=== PATIENT | male | born 1995 | race Caucasian/White ===

== ENCOUNTER 2016-07-24 13:01 | Day surgery (SDC) | payer OTHER ==
[~2016-07-24] VITALS: Ht 188 cm; Wt 79.6 kg
[2016-07-24] VITALS (7 sets, daily range): BP systolic 100–140; BP diastolic 42–84; PULSE 81–101; RESP 12–16; O2SAT 99–100
[2016-07-24] MEDS ORDERED: Dexamethasone 4 mg/mL Inj ONE (13:02)
[2016-07-24] MEDS ORDERED: Ondansetron 2 mg/mL 2 mL Inj ONE (13:02)
[2016-07-24] MEDS ORDERED: Propofol 10,000 mCg/mL 20 mL Inj ONE (13:02)
[2016-07-24] MEDS ORDERED: fentaNYL-PF 50 mCg/mL 2 mL Inj ONE (13:02)
[2016-07-24] MEDS ORDERED: Lactated Ringer's 1,000 ML IV ONE ×2 (13:12→13:37)
[2016-07-24] MEDS ORDERED: CeFAZolin Inj 2 gm / 50mL D5W IV ONE (13:30)
[2016-07-24] MEDS ORDERED: Lactated Ringer's 500 ML IV PRN (13:37)
[2016-07-24] MEDS ORDERED: Lactated Ringer's 1,000 ML IV SCH (13:37)
--- NOTE | 2016-07-24 13:37 | PCM.HPANE ---
Patient Data Date of Service: Jul 24, 2016 Surgeon Admitting Provider: Attending Provider:Jose Golden MD Primary Care Physician:Daniela Dao MD Other Provider:Landon Zapien Anesthesia Reason for Visit Testiculor Torsion Ht/WT & BMI Height (Feet): 6 Height (Inches): 2.00 Weight (Kilograms): 79.600 Body Mass Index 22.00 Allergies Coded Allergies: No Known Allergies (Unverified , 07/24/16) Past Anesthesia History Anesthesia History: Denies:: Abnormal Airway, Anesthesia Reactions, Difficult Intubation, Fam Anesthesia Reaction, Fam Malignant Hypertherm, Malignant Hyperthermia Diabetes History Hx Diabetes?: No MRSA MRSA: No Medications Home Meds Incl Beta Andra: No History History of ENT Problems?: No HEENT History: Denies:: Abnormal Airway Cataracts Difficult Intubation Dysphagia Glaucoma Hearing Problem Sinus Problem TMJ Denture Type: None Teeth Condition: Within Normal Limits Hx of Heart Problems?: No Cardiovascular History: Denies:: AICD Abdominal Aortic Aneurism Atrial Fibrillation Cardiac Surgery Chest Pain Congestive Heart Failure Coronary Artery Disease Edema Heart Murmur Hypertension Irregular Heartbeat Pacemaker Peripheral Vascular Rheumatic Fever Thrombophlebitis Valvular Heart Disease Hx of Respiratory Problem?: No Respiratory History: Denies:: Asthma COPD Chest Surgery Cough Dyspnea Emphysema Hemoptysis Oxygen Administration Pneumonia Pulmonary Embolism Tuberculosis Use of C-PAP Machine Use of Inhalers / NEBS Hx Neurologic Problems?: No Neurological History: Denies:: Alzheimer's Disease CVA Dementia Dizziness Headaches Multiple Sclerosis Parkinson's Disease Peripheral Neuropathy Seizures TIA Hx of GI Problems?: No Gastrointestinal History: Denies:: Cirrhosis Diverticulitis Gall Bladder Disease Gastroesphageal Reflux Gastrointestinal Bleeding Heartburn Hepatitis Hiatal Hernia Liver Disease Rectal Bleeding Hx of Problems?: No Genitourinary History: Denies:: HX of Hemodialysis Kidney Stones Urinary Tract Infection Male Hx: Positive for:: Testicular Surgery (07/24 juju orchiopexy) Hx Musculoskeletal Problems?: No Musculoskeletal History: Denies:: Back Injury Degenerative Joint Fibromyalgia Joint Replacement Musculoskeletal Trauma Myasthenia Gravis Osteoarthritis Rheumatoid Arthritis Systemic Lupus Hx of Psycho/Social Problems?: No Hx Surgeries?: No Hx Any Other Health Problems?: No Other History: Denies:: Cancer Endocrine Disease Hospitalization Thyroid Disease History Blood Transfusions: Positive for:: Accept Blood Products? Denies:: Blood Transfusions Hx Diabetes: No Stop/Bang S-Snoring: Do You Snore Loudly: No T-Tired: feel tired, fatigued: No O-Obsered: Observed not breath: No P-Blood Pressure: treated: No B- Body Mass Index > 35 kg/m2: No A- Age over 50: No N- Neck Large Circumference: No G- Gender Male: Yes GRAHAM Total Score: 1 GRAHAM Risk Assessment: Low Risk, <3 Yes Risk Assessment Category Category 1A: Patient has history of documented sleep apnea, and HAS NOT received any narcotic, sedative or anesthesia administration during this stay. Category 1B: Patient has history of documented sleep apnea, and HAS received any narcotic , sedative or anesthesia administration during this stay Category 2: Patient has SUSPECTED Obstructive Sleep Apnea, and HAS received any narcotic , sedative or anesthesia administration during this stay. Category 3: Patient has SUSPECTED Obstructive Sleep Apnea and HAS NOT received narcotic, sedative or anesthesia administration during this stay. Category 4: Outpatient in Procedural Areas with known sleep apnea or who screen positive for High Risk via the STOP/BANG questionnaire. Exam Exam Vital Signs Vital Signs Date Time Temp Pulse Resp B/P Pulse Ox O2 Delivery O2 Flow Rate FiO2 07/24/16 13:07 37.1 101 16 100/49 99 Room Air General Appearance: Alert, Oriented X3, Cooperative, No Acute Distress HEENT/AIRWAY: MP 1 Lungs: Normal Air Movement Heart: Exam Unremarkable Meds/Labs/Diagnostics Admission Meds Current Medications Lactated Ringer's (Lr) 1,000 ml @ ud STK-MED ONCE IV Last administered on 07/24t 13:12; Start 07/24/16 at 13:12; Stop 07/24/16 at 13:18; Status DC Plan Impression Patient chart reviewed, patient interviewed and anesthestic plan with risks, benefits, and alternatives discussed, and informed consent obtained. ASA Physical Status: ASA1 Normal Healthy Anesthetic Plan: GA Bene/Risks/Altern/Consents: Yes HP Complete Prior to Induction: Yes Rodney Davison MD Jul 24, 2016 13:37
[2016-07-24] MEDS ORDERED: Labetalol 5 mg/mL 4 mL Inj IV PRN (13:40)
[2016-07-24] MEDS ORDERED: Ondansetron 2 mg/mL 2 mL Inj IVPUSH PRN (13:40)
[2016-07-24] MEDS ORDERED: Phenylephrine 10,000 mCg/mL Inj IVPUSH PRN (13:40)
[2016-07-24] MEDS ORDERED: Atropine 0.4 mg/mL Inj IVPUSH PRN (13:40)
[2016-07-24] MEDS ORDERED: MetoCLOpramide 5 mg/mL 2 mL Inj IVPUSH PRN (13:40)
[2016-07-24] MEDS ORDERED: fentaNYL-PF 50 mCg/mL 2 mL Inj IVPUSH PRN (13:40)
[2016-07-24] MEDS ORDERED: HYDROmorphone 1 mg/mL Inj IVPUSH PRN (13:40)
[2016-07-24] MEDS ORDERED: Dexamethasone 4 mg/mL Inj IVPUSH PRN (13:40)
[2016-07-24] MEDS ORDERED: EPHEDrine Sulfate 50 mg/mL Inj IVPUSH PRN (13:40)
[2016-07-24] MEDS ORDERED: Bupivacaine-MPF 0.5% 30 mL Inj INFILTRATE ONE (13:57)
[2016-07-24] MEDS ORDERED: Bacitracin Ointment Packet TOPICAL ONE (14:34)
--- NOTE | 2016-07-24 14:46 | PCM.ANEP1 ---
Post Anesthesia PACU Phase 1 Assessment Date of Service: Jul 24, 2016 Vital Signs Vital Signs Date Time Temp Pulse Resp B/P Pulse Ox O2 Delivery O2 Flow Rate FiO2 07/24/16 13:07 37.1 101 16 100/49 99 Room Air Anesthetic Administered: GA Level of Alertness: Drowsy, not talking Pain: No Nausea or Vomiting: No CV Function & Hydration Stable: Yes Airway Device: Oxygen Delivery: Nasal Cannula Lungs: Normal Air Movement PACU Phase 2 Assessment Complications: No Follow up Care: N/A Patient Instructions Provided: N/A Rodney Davison MD Jul 24, 2016 14:46
--- NOTE | 2016-07-25 00:03 | HP ---
[address] [address] HISTORY AND PHYSICAL PATIENT: DANII BYRNES : 1995 MR#: [id number] ADMIT: 07/24/2016 JOB ID: [id number] HISTORY: The patient is a pleasant, 21-year-old, black male, who was experiencing his usual health until shortly after awaking this morning when he had a relatively acute onset of severe and unremitting right scrotal content pain. His distress was severe enough to precipitate presentation to the [facility] for evaluation, where physical and ultrasonographic exam with Doppler were consistent with right testicular torsion. He was transferred by ambulance subsequently after phone conversation with Dr. Neumann, the emergency department physician of record. The patient is . He denies a past history of SCDs. Urinalysis is clear. He denies irritative voiding symptoms or urethral discharge. ALLERGIES: None. MEDICATIONS: No regular meds. REVIEW OF SYSTEMS: Noncontributory. EXAMINATION: Afebrile. Vital signs are stable. Head and neck exam is unremarkable. Sclerae are clear. Neck is supple. Chest: Equal, clear and unlabored expansion bilaterally. Heart rate is regular. No extra sounds. Chest: Clear and equal unlabored bilaterally. External genitalia: Normal phallus. The skin is very hyperpigmented. No discrete erythema or color changes of the right hemiscrotum can be appreciated. He is painful at rest and tender with any manipulation. Extremities: No pallor, cyanosis, edema, or clubbing. IMPRESSION: Acute right testicular torsion approaching 5-1/2 hours. PLAN: Detailed discussion and informed consent to the OR immediately for scrotal exploration, left orchidopexy, right testicular detorsion with orchiopexy, possible right orchiectomy.
--- NOTE | 2016-07-25 01:00 | OP ---
[address] [address] OPERATIVE REPORT PATIENT: DANII BYRNES : 1995 MR#: [id number] ADMIT: 07/24/2016 JOB ID: [id number] DATE OF SURGERY: 07/24/2016 PREOPERATIVE DIAGNOSIS(ES): Right testicular torsion. POSTOPERATIVE DIAGNOSIS(ES): Right testicular torsion. OPERATION PERFORMED: 1. Scrotal exploration. 2. Bilateral testicular orchidopexy. 3. Right testicular detorsion. SURGEON: Jose Golden MD ANESTHESIOLOGIST: Rodney Davison MD. ANESTHESIA: General plus 0.5% Marcaine plain. PROCEDURE SUMMARY: The patient was positioned supine. Was administered general anesthetic. The lower abdomen, genitalia and groin were then prepped and draped in sterile fashion. The midline scrotal raphae was infiltrated with local anesthetic. The needle tip cautery pen was then used to divide the skin and subcutaneous layers. The right hemiscrotal compartment was then entered. The tunica vaginalis was identified. Was carefully cleared of attached dartos fascia and the tunica vaginalis was opened with drainage of a small reactive hydrocele. The right testicle was classically torsed and grossly congested. Upon detorsion, it was gently wrapped in sterile saline soaked gauze. Next, the left hemiscrotal compartment was entered using the same steps and maneuvers. a 2-0 Monocryl suture was then used to pexy the testis medially and laterally by attaching the tunica albuginea to the lateral or medial scrotal sidewall respectively. Now, attention was turned once again back to the right hemiscrotum. The testis did appear improved. A small incision revealed oxygenated blood from needle passage for orchidopexy. Right orchidopexy was then performed using the same steps and maneuvers as described above on the left. The sheath of the vas deferens was also infiltrated with local anesthetic and generally within the right cord. Next, the midline scrotal dartos fascia was closed with a running 3-0 Monocryl. The skin was reapproximated using a running vertical mattress of 4-0 Monocryl. Antibiotic ointment was applied to the incision line. Dry sterile fluffs was then applied to the scrotum and then an athletic supporter was then fitted to the patient. The patient was then awakened, transferred to [facility], and transferred to recovery in stable condition.
== END 2016-07-24 23:59 | disposition home or self-care (01) ==
LOC: SAS 13:01
PROVIDERS: ATTEND Specialist
DX: N44.00 Torsion of testis, unspecified (principal)
CPT/HCPCS: 54600; 54640; J0690; J1100; J2250; J2405; J3010; J7120